=== PATIENT | female | born 1955 | race Caucasian/White ===

== ENCOUNTER → 2020-08-24 | Outpatient (CLI) | payer OTHER ==
[~2020-08-24] MED LIST: CIPRO500 MG PO; CLEOCIN HCL150 MG PO
== END ==
LOC: KOH-I 15:24
DX: M25.562 Pain in left knee (principal); M17.12 Unilateral primary osteoarthritis, left knee
CPT/HCPCS: 73562

== ENCOUNTER 2020-11-10 14:35 | Emergency (ER) | payer OTHER ==
[2020-11-10 17:08] LABS: RED BLOOD COUNT 4.34 M/UL (4.00-5.10); WHITE BLOOD COUNT 9.7 K/UL (4.5-11.0)
[2020-11-10 17:24] LABS: BUN/CREATININE RATIO 10 (0-10)
[2020-11-10] MEDS ORDERED: CIPRO500 MG PO (18:59)
[2020-11-10] MEDS ORDERED: CLEOCIN HCL150 MG PO (18:59)
== END 2020-11-10 19:11 | disposition home or self-care (01) ==
LOC: ER1 14:35
PROVIDERS: Physician Assistant
DX: K04.7 Periapical abscess without sinus (principal); K11.20 Sialoadenitis, unspecified; E78.00 Pure hypercholesterolemia, unspecified; F17.210 Nicotine dependence, cigarettes, uncomplicated; Z79.899 Other long term (current) drug therapy
CPT/HCPCS: 70487; 80048; 85025; 99284; Q9963

== ENCOUNTER → 2020-12-03 | Outpatient (CLI) | payer MEDICARE, OTHER | LOC: KOH-I 12:46 | DX: M79.641 Pain in right hand (principal) | CPT/HCPCS: 73130 ==